=== PATIENT | female | born 1975 | race Caucasian/White ===

== ENCOUNTER 2016-09-30 13:52 | Emergency (ER) | payer OTHER ==
[~2016-09-30] VITALS: Ht 162.6 cm; Wt 64.5 kg
[~2016-09-30 13:52] MED LIST: HYDR-906 PO; IBUP-1542 PO
[2016-09-30 14:09] VITALS: Ht 162.6 cm; Wt 64.5 kg
[2016-09-30] MEDS ORDERED: FLUORESCEIN STRIP RIGHT EYE ONE (15:30)
--- NOTE | 2016-09-30 15:33 | ERD ---
ER Documentation Chief Complaint Date/Time DATE: 09/30/16 TIME: 15:30 Chief Complaint somthing in r.eye x yesterday and vaginal discharge x 3 days HPI 41 year old female presents with right eye irritation that started yesterday, as well as vaginal discharge for 3 days. She states that she was cleaning a fish, and 1 of the skills had on into her right eye she feels sharp pain at the top. She is no foreign body sensation. She has no visual changes including blurry vision or visual field deficits. No drainage. She also reports green foul-smelling vaginal discharge for 3 days, and she is sexually active with one partner, her . She has not had any fevers associated, dyspareunia, or vaginal bleeding, or pelvic pain. ROS All systems reviewed and are negative except as per history of present illness. Medications Home Meds Active Scripts Fluconazole* (Diflucan*) 150 Mg Tablet, 150 MG PO DAILY, #1 TAB Prov:NEGRA CESAR PA-C 09/30/16 Metronidazole* (Metrogel* Vaginal) 0.75% -70 Gram Gel.w.appl, 1 APPFUL VAG HS for 5 Days, TUB Prov:NEGRA CESAR PA-C 09/30/16 Erythromycin (Erythromycin Opth) 3.5 Gm Oint..gm., 1 APPLIC BOTH EYES QID, #1 Prov:NEGRA CESAR PA-C 09/30/16 Hydrocodone/Acetaminophen ([place] 5-325 Tablet) 1 Each Tablet, 1 TAB PO Q6H Y for SEVERE PAIN LEVEL 7-10, #10 TAB Prov:VICTORIA MALONE NP 10/21/15 Reported Medications Ibuprofen* (Motrin*) Unknown Strength Tab, PO Q6H Y for PAIN AND OR ELEVATED TEMP, #30 TAB 10/21/15 Allergies Allergies: Coded Allergies: No Known Allergy (Unverified , 10/21/15) PMhx/Soc History of Surgery: Yes (appendectomy, hysterectomy) Hx Miscellaneous Medical Probl: Yes (Thyroid disease) Hx Alcohol Use: No Hx Substance Use: No Hx Tobacco Use: No Physical Exam Vitals Vital Signs Date Time Temp Pulse Resp B/P Pulse Ox O2 Delivery O2 Flow Rate FiO2 09/30/16 14:09 98.1 84 18 112/86 100 Physical Exam General: Well-developed, well-nourished. The patient appears in no acute distress. HEENT: Head is normocephalic, atraumatic. No scleral icterus. Eye Exam: Visual Acuity: 20/20, 20/20 Visual Morrell: Intact in all four quadrants bilaterally Lac ducts/glands: No swelling Lids w/ evertion: Normal, no foreign body Conj/[place]: Mild injection to the right eye, negative Fluorescein/ Jamal's Anterior Chamber: Clear Neck: Supple. Nontender. Lungs: Clear to auscultation. Normal air movement. Heart: Regular rate and rhythm. S1 and S2 are normal. No murmurs, gallops, or rubs. Abdomen: Soft, nontender, nondistended. Bowel sounds are normoactive. : There is white to yellowish greenish discharge, there is no pain, no CMT tenderness. Extremities: No clubbing or cyanosis. Normal pulses. Moving extremities x 4. No weakness. Neurologic: Alert and oriented 3. No focal deficits. Skin: Normal turgor. No rash or lesions. Results 24 hrs Laboratory Tests Test 09/30/16 16:03 Bedside Urine pH (LAB) 6.0 Bedside Urine Protein (LAB) Negative Bedside Urine Glucose (UA) Negative Bedside Urine Ketones (LAB) Negative Bedside Urine Blood Trace-intact Bedside Urine Nitrite (LAB) Negative Bedside Urine Leukocyte Esterase (L Trace Current Medications Medications (Trade) Dose Ordered Sig/[place] Route PRN Reason Start Time Stop Time Status Last Admin Dose Admin Fluorescein Sodium ([id number]) 1 strip ONCE ONCE RIGHT EYE 09/30/16 15:30 09/30/16 15:31 DC Procedures/MDM ED course: Patient had a Yuri lens done to her right eye with irrigation with normal saline. Patient reports she feeling much better. Patient's eye examination was repeated, everted lids and there is no evidence of foreign body. MDM: 38-year-old female presents with vaginal discharge, as well as corneal abrasion on the right eye. There is no evidence of globe rupture, orbital cellulitis, keratitis or uveitis or foreign bodies. Irrigation was done, pain is likely due to a corneal abrasion. She also comes in with vaginal discharge, will treat for bacterial vaginosis. Urine was also sent for gonorrhea and chlamydia. No signs of PID, cervicitis. Eye examination shows no evidence of foreign body, patient presents with superficial abrasion seen, without evidence of globe rupture. Irrigation was done emergency department she reports to be feeling better at this time she will be given erythromycin advised to recheck with a primary care doctor in 1-2 days. Departure Diagnosis: Primary Impression: Corneal abrasion Additional Impression: Vaginitis Condition: Good NEGRA CESAR PA-C Sep 30, 2016 15:33
[2016-09-30 15:56] LABS: URINE BLOOD (Dip) POC Trace-intact (NEGATIVE)
[2016-09-30] MEDS ORDERED: METR70GE15 VAG (17:17)
[2016-09-30] MEDS ORDERED: FLUC150T17 PO (17:17)
[2016-09-30] MEDS ORDERED: ERYT1OIN6 BOTH EYES (17:17)
== END 2016-09-30 17:40 | disposition home or self-care (01) ==
LOC: FTE 13:52 → EDUNIT# 13:52 → FTE 17:40
DX: S05.01XA Injury of conjunctiva and corneal abrasion without foreign body, right eye, initial encounter (principal); N76.0 Acute vaginitis; W22.8XXA Striking against or struck by other objects, initial encounter; Y92.9 Unspecified place or not applicable
CPT/HCPCS: 81003; 87591; 99284